=== PATIENT | male | born 1990 | race American Indian/Alaskan Native ===

== ENCOUNTER 2016-03-09 11:15 | Emergency (ER) | payer OTHER ==
[2016-03-09 12:34] VITALS: BP 127/81
[2016-03-09] MEDS ORDERED: BSS 1 DROPS, TETRACAINE 0.5% 1 DROPS, FUL-GLO 1 MG OD ONE (14:16)
[2016-03-09] MEDS ORDERED: BSS ONE (14:16)
[2016-03-09] MEDS ORDERED: TETRACAINE 0.5% ONE (14:16)
[2016-03-09] MEDS ORDERED: FUL-GLO OP ONE (14:16)
--- NOTE | 2016-03-09 14:30 | Emergency Department Report ---
ED Eye Problem HPI - General Chief complaint: Eye Problems Stated complaint: EYE IRRITATION Time Seen by Provider: 03/09/16 14:15 Source: patient Mode of arrival: Ambulatory Limitations: No Limitations - History of Present Illness Initial comments: Patient is a 25 y/o male who presents due to right eye pain and redness x 2 days. Patient states that he was playing basketball when another teammates poked him in his right eye. Patient denies any blurred vision. chief complaint: eye pain, eye redness, eye injury Onset/Timin -: days(s) Onset Description: sudden Location: right eye Place: street/outdoors If Injury: direct trauma Eye Symptoms: redness, pain Severity: moderate If Pain, Quality: aching Consistency: intermittent Context: trauma Treatments Prior to Arrival: none - Related Data Previous Rx's Medication Instructions Recorded Last Taken Type Ibuprofen [Motrin 800 MG tab] 800 mg PO Q8HR PRN #30 tablet 03/09/16 Unknown Rx Tobramycin 0.3% [Tobrex] 2 drop OD Q4HR #1 bottle 03/09/16 Unknown Rx Allergies Allergy/AdvReac Type Severity Reaction Status Date / Time No Known Allergies Allergy Verified 03/09/16 14:19 ED Review of Systems ROS: Stated complaint: EYE IRRITATION Other details as noted in HPI Comment: All other systems reviewed and negative Constitutional: no symptoms reported Eyes: eye pain Respiratory: no symptoms reported Musculoskeletal: denies: back pain, joint swelling, arthralgia, myalgia Skin: denies: rash, lesions, change in color, change in hair/nails, pruritus Neurological: denies: headache, weakness, numbness, paresthesias, confusion, abnormal gait, vertigo Psychiatric: denies: anxiety ED Past Medical Hx - Past Medical History Previous Medical History?: No - Surgical History Past Surgical History?: No - Social History Smoking Status: Current Some Day Smoker Substance Use Type: Alcohol - Medications Home Medications: Home Medications Medication Instructions Recorded Confirmed Last Taken Type Ibuprofen [Motrin 800 MG tab] 800 mg PO Q8HR PRN #30 tablet 03/09/16 Unknown Rx Tobramycin 0.3% [Tobrex] 2 drop OD Q4HR #1 bottle 03/09/16 Unknown Rx ED Physical Exam - General Limitations: No Limitations General appearance: alert, in no apparent distress - Head Head exam: Present: atraumatic, normocephalic, normal inspection - Eye Eye exam: Present: PERRL, EOMI, conjunctival injection Pupils: Present: normal accommodation - Expanded Eye Exam Expanded Eyelids: Normal Inspection: Right Pupils: Regular, Round: Right Sclera/Conjunctival: Normal Inspection: Left, Hemorrhage: Right ED Course Vital Signs 03/09/16 12:30 Temperature 97.8 F Pulse Rate 54 L Respiratory 18 Rate Blood Pressure 127/81 O2 Sat by Pulse 100 Oximetry ED Medical Decision Making - Medical Decision Making EYE EXAM WAS PERFORMED WITH A SYKES LAMP, PATIENT HAD NO CORNEAL ABRASION, NO HYPHEMA, NO CORNEAL ULCER Patient was discharged with information to follow up with an laborer mine, he was given a prescription for tobramycin eye drops and Ibuprofen for pain - Differential Diagnosis corneal abrasion, conjunctivitis, conjunctical hemorrage Critical care attestation.: If time is entered above; I have spent that time in minutes in the direct care of this critically ill patient, excluding procedure time. ED Disposition Clinical Impression: Subconjunctival hemorrhage Qualifiers: Laterality: right Qualified Code(s): H11.31 - Conjunctival hemorrhage, right eye Disposition: DISCHARGED TO HOME OR SELFCARE Is pt being admited?: No Does the pt Need Aspirin: No Condition: Good Instructions: Subconjunctival Hemorrhage (ED) Additional Instructions: FOLLOW UP WITH THE PROVIDED PRODUCTION CONTROL COORDINATOR, APPLY TOBRAMYCIN 2 DROPS TO RIGHT EYE EVERY 4 HOURS FOR 7 DAYS. Prescriptions: Ibuprofen [Motrin 800 MG tab] 800 mg PO Q8HR PRN #30 tablet PRN Reason: Pain Tobramycin 0.3% [Tobrex] 2 drop OD Q4HR #1 bottle Referrals: ИВАН LEACH MD [Primary Care Provider] - 3-5 Days GARLAND RICARDO MD [Staff Physician] - 3-5 Days Forms: Work/School Release Form(ED) Time of Disposition: 14:33
== END 2016-03-09 15:38 | disposition home or self-care (01) ==
LOC: ED 11:15
DX: H11.31 Conjunctival hemorrhage, right eye (principal); F17.200 Nicotine dependence, unspecified, uncomplicated
CPT/HCPCS: 99282